=== PATIENT | female | born 1970 | race Caucasian/White ===

== ENCOUNTER → 2020-09-18 | Outpatient (CLI) | payer OTHER ==
[~2020-09-18] MED LIST: ATOR20TA66 PO
--- NOTE | 2020-09-18 13:23 | Diagnostic Imaging Report ---
EXAMINATION: Digital mammogram bilateral screening with CAD. INDICATION: Screening. COMPARISON: This study was compared to the prior exam of 07/18/2014. PERSONAL HISTORY: At this time, there are no current complaints. FINDINGS: There are scattered fibroglandular densities in both breasts which could obscure a lesion. Overall, there does not appear to have been any significant change when compared to the prior exam. No primary or secondary sign of malignancy is noted. IMPRESSION: 1. There is no evidence for malignancy. 2. The patient should have her annual bilateral screening mammogram on schedule in September 2021. ACR BI-RADS Category 1: Negative. Result letter will be mailed to the patient. Note: At least 10% of breast cancer is not imaged by mammography. Dictated by: Dictated on workstation # [id number]
== END ==
LOC: RAD 10:01
PROVIDERS: ATTEND Internal Medicine Endocrinology, Diabetes & Metabolism
DX: Z12.31 Encounter for screening mammogram for malignant neoplasm of breast (principal)
CPT/HCPCS: 77063; 77067

== ENCOUNTER → 2021-10-11 | Outpatient (CLI) | payer OTHER ==
--- NOTE | 2021-10-11 12:06 | Diagnostic Imaging Report ---
INDICATION: Routine screening. COMPARISON is made with prior mammograms 09/18/2020 and 07/18/2014. 2-D and 3-D bilateral screening mammography was performed with CAD. Scattered fibroglandular densities are identified bilaterally. The parenchymal pattern is stable. No mass or malignant-appearing microcalcifications are seen. Axillae are unremarkable. IMPRESSION: BI-RADS Category 1. No mammographic features suspicious for malignancy are identified. ACR BI-RADS Category 1: Negative. Result letter will be mailed to the patient. Note: At least 10% of breast cancer is not imaged by mammography. Dictated by: Dictated on workstation # [id number]
== END ==
LOC: RAD 11:30
PROVIDERS: ATTEND Internal Medicine Endocrinology, Diabetes & Metabolism
DX: Z12.31 Encounter for screening mammogram for malignant neoplasm of breast (principal)
CPT/HCPCS: 77063; 77067

== ENCOUNTER 2022-03-23 08:23 | Emergency (ER) | payer OTHER ==
[~2022-03-23] VITALS: Ht 167 cm; Wt 77.0 kg
[2022-03-23] MEDS ORDERED: HYDR-700 PO (08:57)
--- NOTE | 2022-03-23 08:57 | ED Integumentary General ---
General Chief Complaint: Allergic Reaction Stated Complaint: POSION KEELY RASH Nursing Triage Note: PT PRESENTS TO ED VIA POV FROM HOME WITH COMPLAINTS OF FACIAL RASH, RASH ON ARMS FOR 1 WEEK AFTER CLEARING BRUSH FROM HER YARD. Source: patient Exam Limitations: no limitations History of Present Illness Date Seen by Provider: Mar 23, 2022 Time Seen by Provider: 08:40 Initial Comments Patient is a 51-year-old female who presents to the emergency department today with a chief complaint of left-sided facial rash, swelling, rash on her arms and lower legs. She has been cleaning up her yard over the course of the last week and believes that she got into some poison keely. Some of the rash is raised and a little blistery. It is patchy and diffuse. She complains of intense itching. No shortness of breath, chest pain. No nausea vomiting. No vision changes or hearing changes. No intraoral lesions/complaints. She has been taking a little Benadryl at home but its not been helping. History of MS diagnosed in the late . On Ocrevus twice a year. Not a diabetic. All other review of systems reviewed and negative except as stated Timing/Duration: week Severity: moderate Location: face, extremities Possible Cause: exposure to allergen Associated Symptoms: change in skin texture, rash Allergies and Home Medications Allergies Coded Allergies: Sulfa (Sulfonamide Antibiotics) (Unverified Allergy, Intermediate, 03/05) Patient Home Medication List Home Medication List Reviewed: Yes Atorvastatin (Lipitor Tablet) 20 Mg Tablet, 20 MG PO DAILY, (Reported) Entered as Reported by: CHASE PRYOR on 03/05/15 0824 Review of Systems Review of Systems Constitutional: see HPI EENTM: other (Facial swelling) Respiratory: no symptoms reported Cardiovascular: no symptoms reported Gastrointestinal: no symptoms reported Genitourinary: no symptoms reported Musculoskeletal: no symptoms reported Skin: pruritus, rash All Other Systems Reviewed Negative Unless Noted: Yes Past Jjkqcmw-Fyhwtg-Suymyw Hx Patient Social History Tobacco Use?: Yes Tobacco type used: Cigarettes Smoking Status: Current Everyday Smoker Substance use?: No Alcohol Use?: No Pt feels they are or have been: No Immunizations Up To Date First/Initial COVID19 Vaccinat: YES Second COVID19 Vaccination Jermaine: YES Past Medical History Surgery/Hospitalization HX: MS Physical Exam Vital Signs Vital Signs - First Documented 03/23/22 08:34 Temp 35.5 Pulse 70 Resp 16 B/P (MAP) 107/77 (87) Pulse Ox 97 Capillary Refill : Less Than 3 Seconds General Appearance: WD/WN, no apparent distress HEENT: PERRL/EOMI, TMs normal, pharynx normal, other (Upper dentures in place. No intraoral lesions, no lesions in the left ear canal) Neck: full range of motion, supple, normal inspection Cardiovascular: regular rate, rhythm Respiratory: lungs clear, normal breath sounds, no respiratory distress, no accessory muscle use Extremities: normal range of motion, non-tender, no pedal edema Neurologic/Psychiatric: alert, normal mood/affect, oriented x 3 Skin: normal color, warm/dry, rash Skin Problem Location: face, upper extremities, lower extremities Skin Problem Character: erythema, patchy, rash, vesicular (On the lower extremity anterior bello) Progress/Results/Core Measures Results/Orders My Orders Orders - RAMIRO VALADEZ MD Dexamethasone Injection (Decadron Injec (03/23/22 09:00) Hydroxyzine Cap/Tab (Vistaril) (03/23/22 09:00) Vital Signs/I&O 03/23/22 08:34 Temp 35.5 Pulse 70 Resp 16 B/P (MAP) 107/77 (87) Pulse Ox 97 Blood Pressure Mean: 87 Progress Progress Note : Time: 08:54 Progress Note Patient treated with 50 mg of hydroxyzine and 10 mg of Decadron IM. Advised calamine lotion, cool baths, will give a prescription for hydroxyzine. Return precautions discussed. She verbalized understanding. Findings consistent with poison keely dermatitis. Departure Impression Primary Impression: Contact dermatitis due to poison keely Disposition: 01 HOME, SELF-CARE Condition: Stable Departure-Patient Inst. Decision time for Depature: 08:55 Referrals: NO,LOCAL PHYSICIAN (PCP/Family) Primary Care Physician Patient Instructions: Poison [place], Poison [place], Poison [place] ED Add. Discharge Instructions: Cool baths/showers will help with the itching. Hydroxyzine 25 mg, 1-2 every 6-8 hours as needed for itching. Calamine lotion will also help with the itching. You have been given a shot of steroids today which should help with the inflammation over the next 24 hours and improve the rash. Return to the emergency department for any new, concerning or emergent complaints. Scripts Hydroxyzine HCl (Hydroxyzine HCl) 25 Mg Tablet 25 MG PO Q6H PRN for itching, #20 TAB Prov: RAMIRO VALADEZ MD 03/23/22 RAMIRO VALADEZ MD Mar 23, 2022 08:57
[2022-03-23] MEDS ORDERED: hydrOXYzine (VISTARIL/ATARAX) 25 MG capsule/tablet PO ONE (09:00)
[2022-03-23 09:17] VITALS: BP 107/77
== END 2022-03-23 09:16 | disposition home or self-care (01) ==
LOC: EDUNIT# 08:23 → ER 08:26
DX: L23.7 Allergic contact dermatitis due to plants, except food (principal); F17.210 Nicotine dependence, cigarettes, uncomplicated
CPT/HCPCS: 99284

== ENCOUNTER 2023-07-09 19:43 | Outpatient (CLI) | payer OTHER ==
[~2023-07-09 19:43] MED LIST changes: +HYDR-700 PO
== END 2023-07-10 06:10 ==
LOC: CANPRECLI → SLEEP 19:43
PROVIDERS: ATTEND Internal Medicine Endocrinology, Diabetes & Metabolism
DX: G47.33 Obstructive sleep apnea (adult) (pediatric) (principal)
CPT/HCPCS: 95810